=== PATIENT | female | born 1960 | race Caucasian/White ===

== ENCOUNTER 2017-11-05 05:56 | Day surgery (SDC) | payer SELFPAY ==
[~2017-11-05] VITALS: Ht 154.9 cm; Wt 68.0 kg
[~2017-11-05 05:56] MED LIST: LIPITOR10 M1 PO; SG ASA LOW81 M1 PO
[2017-11-05] MEDS ORDERED: PERCOCET 5/325M1 TAB PO ×2 (08:35→08:58)
[2017-11-05] MEDS ORDERED: IBUPROFEN PO (08:38)
[2017-11-05] MEDS ORDERED: IBUPROFEN600 MG PO (08:40)
[2017-11-05] MEDS ORDERED: MOTRIN400 MG PO (08:58)
[2017-11-05 13:41] VITALS: BP 138/73
== END 2017-11-05 09:55 | disposition home or self-care (01) | DRG 355 ==
LOC: ORM 05:56
PROVIDERS: ATTEND Surgery
PROC: 0WUF4JZ Supplement Abdominal Wall with Synthetic Substitute, Percutaneous Endoscopic Approach (ICD-10-PCS; principal; 2017-11-05)
DX: K42.9 Umbilical hernia without obstruction or gangrene (principal)
CPT/HCPCS: J2710